=== PATIENT | female | born 2000 | race Caucasian/White ===

== ENCOUNTER → 2019-08-28 | Outpatient (CLI) | payer OTHER ==
[2019-08-28 17:56] LABS: ARTERIAL BLOOD BASE EXCESS -5.1 mmol/L; ARTERIAL BLOOD H2CO3 0.61 mmol/L (1.05-1.35); ARTERIAL BLOOD HCO3 15.6 mmol/L (20-24); ARTERIAL BLOOD O2 SATURATION 98.8 % (94-98); ARTERIAL BLOOD PO2 123.7 mmHg (80-100); ARTERIAL BLOOD TOTAL CO2 16.2 mmol/L (21-25)
[2019-08-28 18:32] LABS: ARTERIAL BLOOD FIO2 ROOM AIR; ARTERIAL BLOOD PCO2 20.4 mmHg (35-45)
== END ==
LOC: LAB 17:05
PROVIDERS: ATTEND Nurse Practitioner Family
DX: R05 Cough (principal); R06.02 Shortness of breath; R53.83 Other fatigue
CPT/HCPCS: 36415; 36600; 82140; 82803; 83605

== ENCOUNTER → 2019-09-06 | Outpatient (CLI) | payer OTHER ==
[2019-09-06 14:57] LABS: ARTERIAL BLOOD BASE EXCESS -5.9 mmol/L; ARTERIAL BLOOD FIO2 ROOM AIR; ARTERIAL BLOOD H2CO3 0.86 mmol/L (1.05-1.35); ARTERIAL BLOOD HCO3 17.4 mmol/L (20-24); ARTERIAL BLOOD O2 SATURATION 97.4 % (94-98); ARTERIAL BLOOD PCO2 28.6 mmHg (35-45); ARTERIAL BLOOD TOTAL CO2 18.3 mmol/L (21-25)
== END ==
LOC: LAB 14:26
PROVIDERS: ATTEND Nurse Practitioner Family
DX: R06.02 Shortness of breath (principal); H81.4 Vertigo of central origin
CPT/HCPCS: 36600; 82803